=== PATIENT | male | born 1950 | race Caucasian/White ===

== ENCOUNTER 2017-09-20 08:58 | Emergency (ER) | payer MEDICARE, MEDICAID ==
[2017-09-20] MEDS ORDERED: Orphenadrine 100 MG Tab.ER PO STA (09:32)
--- NOTE | 2017-09-20 09:38 | EDM.PDOC ---
ED HPI GENERAL MEDICAL PROBLEM - General Chief Complaint: Back Pain or Injury Stated Complaint: LOW BACK PAIN Time Seen by Provider: 09/20/17 09:21 Source of Information: Reports: Patient, Significant Other (Girlfriend) History Limitations: Reports: No Limitations - History of Present Illness INITIAL COMMENTS - FREE TEXT/NARRATIVE: The patient states that he developed lower left back pain about one seizure over the past 3 years. This latest episode began 09/17/2017. He states that it feels like a spasm. It is made worse with movement and standing, but is present even if he lies supine. The pain does not radiate. The patient states that he vomited secondary to the pain. The patient states that he has not previously undergone medical evaluation for his recurrent back pain. The patient denies urinary symptoms, including dysuria, urinary urgency or frequency, or gross hematuria. The patient states that he has been taking Motrin 400 mg every 8 hours. The patient's PCP is Dr. Donahue, who has not been contacted about this issue. Left Lower Back Pain Score (Numeric/FACES): 8 - Related Data Allergies Allergy/AdvReac Type Severity Reaction Status Date / Time Latex, Natural Rubber Allergy Rash Verified 09/20/17 09:08 Home Meds: Home Meds Aspirin [Halfprin] 81 mg PO DAILY 09/20/17 [History] Hydrochlorothiazide 25 mg PO BID 09/20/17 [History] Orphenadrine [Norflex] 1 tab PO Q12H PRN #14 tab.er 09/20/17 [Rx] Valsartan 320 mg PO DAILY 09/20/17 [History] amLODIPine [Norvasc] 10 mg PO DAILY 09/20/17 [History] rOPINIRole [Requip] 1 mg PO BEDTIME 09/20/17 [History] Past Medical History Cardiovascular History: Reports: Hypertension Musculoskeletal History: Reports: Arthritis - Past Surgical History HEENT Surgical History: Reports: Tonsillectomy GI Surgical 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) Neurological Surgical History: Reports: C-Spine (ACDF) Musculoskeletal Surgical History: Reports: Knee Replacement (right), Nerve Relocation (right ulnar) Social & Family History - Tobacco Use Smoking Status *Q: Former Smoker Years of Tobacco use: 40 Packs/Tins Daily: 0.2 - Caffeine Use Caffeine Use: Reports: Coffee - Alcohol Use Alcohol Use History: Yes Alcohol Use Frequency: Socially (occasionally to excess) - Recreational Drug Use Recreational Drug Use: No - Living Situation & Occupation Living situation: Reports: , with Family (Son) Occupation: Retired ED ROS GENERAL - Review of Systems Review Of Systems: ROS reveals no pertinent complaints other than HPI. ED EXAM,LOWER BACK PAIN/INJURY - Physical Exam Exam: See Below Exam Limited By: No Limitations General Appearance: Alert, WD/WN, No Apparent Distress Eye Exam: Bilateral Eye: EOMI, Normal Inspection Ears: Normal External Exam, Hearing Grossly Normal Nose: Normal Inspection Throat/Mouth: Normal Inspection, Normal Lips, Normal Voice, No Airway Compromise Head: Atraumatic, Normocephalic Neck: Normal Inspection, Full Range of Motion GI/Abdominal: Normal Bowel Sounds, Soft, Non-Tender, No Organomegaly, No Distention, No Abnormal Bruit, No Mass, Other (Obese) (Male) Exam: Deferred Rectal (Males) Exam: Deferred Back Exam: Other (No visible abnormality to the patient's back, such as swelling , erythema, ecchymosis, or abrasion. There is no tenderness to the lower left flank, where the patient reports pain, there is no CVAT.) Extremities: Normal Inspection, Normal Range of Motion, No Pedal Edema, Normal Capillary Refill Neurological: Alert, No Motor/Sensory Deficits, Oriented x 3 Psychiatric: Normal Affect Skin Exam: Warm, Dry, Intact, Normal Color, No Rash Course - Vital Signs Last Recorded V/S: Last Vital Signs Temp 36.7 C 09/20/17 10:00 Pulse 83 09/20/17 09:04 Resp 13 09/20/17 09:04 BP 123/85 09/20/17 10:00 Pulse Ox 100 09/20/17 09:04 - Orders/Labs/Meds Meds: Medications Discontinued Medications Generic Name Dose Route Start Last Admin Trade Name Freq PRN Reason Stop Dose Admin Orphenadrine Citrate 100 mg 09/20/17 09:32 09/20/17 09:37 Norflex PO 09/20/17 09:33 100 mg ONETIME STA Administration - Re-Assessments/Exams Free Text/Narrative Re-Assessment/Exam: 09/20/17 09:34 The patient presents with lower left flank pain that is present at all times, but worse with certain movements. He states that sometimes it is so severe that he vomits. The pain does not radiate, therefore radiculopathy is unlikely. He has no urinary symptoms, therefore a ureterolith or UTI is unlikely. The patient 's symptoms appear to be due to a muscle spasm. No tests are indicated at this time. He will be started on Norflex, and I will prescribe an additional 7 days worth. I'm requesting that the patient increase his ibuprofen to 600 mg every 8 hours. He will need to stay active, specifically, swimming, if possible, walking if not. I would like him to follow-up with his PCP, Dr. Donahue, this coming week. Departure - Departure Time of Disposition: 09:35 Disposition: Home, Self-Care 01 Condition: Good Clinical Impression: Back muscle spasm - Discharge Information Prescriptions: Orphenadrine [Norflex] 1 tab PO Q12H PRN #14 tab.er PRN Reason: Muscle Spasm Instructions: Back Pain, Adult, [id number] Referrals: Boris Donahue MD [Primary Care Provider] - Forms: ED Department Discharge Additional Instructions: You were seen in the emergency room for lower left back pain for the past 3 days. On examination, your back pain appears to be due to a muscle spasm, not a herniated intervertebral disc, pinched nerve, kidney stone, or urinary tract infection. You have been started on the muscle relaxant Norflex. A prescription for Norflex has been sent to the clinic pharmacy, located across the street from the hospital. Take one tablet every 12 hours, as prescribed. Increase your Motrin (ibuprofen) to 3 tablets (600 mg) every 8 hours, with food , as needed for pain. It is very important that you stay active. Swimming is best, but walking is also good. Follow-up with your PCP, Dr. Donahue, this coming week. If any other problems, please do not hesitate to return to the ER.
== END 2017-09-20 10:00 | disposition home or self-care (01) ==
LOC: JD.ED 08:58
DX: M62.830 Muscle spasm of back (principal); I10 Essential (primary) hypertension; Z91.040 Latex allergy status; Z79.82 Long term (current) use of aspirin; Z79.899 Other long term (current) drug therapy; Z87.891 Personal history of nicotine dependence
CPT/HCPCS: 99283; A9270